=== PATIENT | male | born 1945 | race Two or more races ===

== ENCOUNTER 2020-05-23 06:29 | Emergency (ER) | payer OTHER ==
[~2020-05-23] VITALS: Ht 167.6 cm; Wt 68.0 kg
[2020-05-23] MEDS ORDERED: TYLENOL EXTRA500 MG PO (07:38)
[2020-05-23] MEDS ORDERED: KETO10TA2 PO (11:08)
== END 2020-05-23 11:19 | disposition home or self-care (01) ==
LOC: ER 06:29
DX: R10.31 Right lower quadrant pain (principal); R10.11 Right upper quadrant pain

== ENCOUNTER 2020-11-07 10:56 | Outpatient (CLI) | payer OTHER ==
[~2020-11-07 10:56] MED LIST: KETO10TA2 PO; TYLENOL EXTRA500 MG PO
== END 2020-11-07 11:04 | disposition home or self-care (01) ==
LOC: RAD 10:56
PROVIDERS: ATTEND Internal Medicine
DX: M51.37 Other intervertebral disc degeneration, lumbosacral region (principal); M50.90 Cervical disc disorder, unspecified, unspecified cervical region